=== PATIENT | female | born 1940 | race Caucasian/White ===

== ENCOUNTER 2018-05-21 16:22 | Emergency (ER) | payer MEDICARE, OTHER ==
[2018-05-21] MEDS ORDERED: Ondansetron ODT 4 MG TAB ONE (16:37)
[2018-05-21] MEDS ORDERED: Fentanyl 100 MCG/2 ML VIAL ONE (16:48)
[2018-05-21] MEDS ORDERED: Adacel (T-DAP) 0.5 ML VIAL ONE (16:52)
[2018-05-21] MEDS ORDERED: Bacitracin Zinc 1 Packet ONE (17:32)
--- NOTE | 2018-05-21 17:37 | CT ---
CT CERVICAL SPINE NONCONTRAST: 05/21/18 HISTORY: 78-year-old female status post acute cervical trauma due to fall. FINDINGS: There are no jumped or perched facets. There is no evidence of acute fracture. The vertebral body h eights are maintained. There is no prevertebral soft tissue swelling. There are degenerative disc c hanges and facet osteoarthrosis. IMPRESSION: 1) Cervical spondylosis. 2) No evidence of acute fracture or acute traumatic subluxation. [email or web address] [] POS: [facility]
--- NOTE | 2018-05-21 17:37 | CT ---
CT BRAIN NONCONTRAST: 05/21/18 HISTORY: 78-year-old female status post acute traumatic head injury. FINDINGS: There is no midline shift or any other mass effect. There is no evidence of acute intracranial hemor rhage, large cortical infarct, obstructive hydrocephalus, or extraaxial fluid collection. The calvar ium is intact. IMPRESSION: No acute intracranial findings. [email or web address] [] POS: [facility]
--- NOTE | 2018-05-21 17:39 | RAD ---
RADIOGRAPH PELVIS ONE VIEW: 05/21/18 HISTORY: 78-year-old female status post acute pelvic trauma from fall. FINDINGS: Diffuse osteopenia. No displaced fracture is identified. Asymmetrically severe left sided degenerativ e disc disease at L5-S1, due to levoscoliosis. The hips appear normal. IMPRESSION: 1. No fracture identified. 2. Osteopenia. 3. Asymmetrically severe left sided degenerative disc disease at lumbosacral junction. 1. POS: [facility]
--- NOTE | 2018-05-21 17:45 | CT ---
CT LUMBAR SPINE NONCONTRAST: 05/21/18 HISTORY: 78-year-old female status post acute traumatic injury to the lumbar spine due to fall. FINDINGS: There are tiny calcified gallstones. No retroperitoneal or perivertebral space hematoma. There are fi ve lumbar type vertebrae. Mild levoscoliosis. Vertebral body heights are maintained. No evidence of f racture. Advanced degenerative disc disease at L3-4, L4-5, and L5-S1. Moderate left neural foraminal stenosis at L5-S1. No high grade central spinal canal stenosis at any level. There is an approximatel y 2.5 x 2 x 2.5 cm expansile cystic lesion scalloping and eroding the bone of the right posterior fadia ments of S2, with a component within the spinal canal, consistent with a Tarlov cyst. IMPRESSION: 1. No evidence of acute traumatic injury in the lumbar spine. 2. Lumbar spondylosis and mild levoscoliosis. 3. Moderate left L5-S1 neural foraminal stenosis. 4. 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 1. POS: [facility]
[2018-05-21] MEDS ORDERED: HYDROcodone/Acetaminophen 10/325 mg Tablet ONE (18:20)
--- NOTE | 2018-05-21 18:43 | RAD ---
RADIOGRAPH RIGHT HIP 2 VIEWS: 05/21/18 HISTORY: 78-year-old female with traumatic right hip pain due to fall. FINDINGS: Hip joint space is maintained. Femoral head contour is maintained. No acetabular or subcapital osteop hytes. No fracture or dislocation. Diffuse osteopenia. IMPRESSION: 1. Osteopenia. 2. Otherwise normal. POS: [facility]
[2018-05-21] MEDS ORDERED: Methocarbamol 500 MG TAB PO SCH (19:00)
--- NOTE | 2018-05-21 19:23 | RAD ---
RADIOGRAPH LEFT HIP 2 VIEWS: 05/21/18 HISTORY: 78-year-old female with traumatic left hip pain due to fall. FINDINGS: Diffuse osteopenia. Femoral head contour is maintained. No subcapital or acetabular osteophytes. Hip joint space is maintained. No fracture identified. No dislocation. IMPRESSION: 1. Osteopenia. 2. Otherwise normal. POS: [facility]
== END 2018-05-21 20:45 | disposition home or self-care (01) ==
LOC: ERS 16:22
DX: S51.011A Laceration without foreign body of right elbow, initial encounter (principal); S16.1XXA Strain of muscle, fascia and tendon at neck level, initial encounter; S70.01XA Contusion of right hip, initial encounter; M54.5 Low back pain; I48.91 Unspecified atrial fibrillation; E78.5 Hyperlipidemia, unspecified; I10 Essential (primary) hypertension; Z87.891 Personal history of nicotine dependence; Z79.899 Other long term (current) drug therapy; Z23 Encounter for immunization; W18.30XA Fall on same level, unspecified, initial encounter
CPT/HCPCS: 70450; 72125; 72131; 72170; 90471; 90715; 96361; 96374; J3010; Q0162